=== PATIENT | female | born 1945 | race Caucasian/White ===

== ENCOUNTER 2023-02-08 08:15 | Day surgery (SDC) | payer OTHER ==
[~2023-02-08] VITALS: Ht 167.6 cm; Wt 78.0 kg
[2023-02-08] MEDS ORDERED: fentaNYL CITRATE/PF 100 MCG/2 ML AMP ONE ×2 (10:02→10:45)
[2023-02-08] MEDS ORDERED: MIDAZOLAM HCL 2 MG/2 ML VIAL (VERSED) ONE ×2 (10:03→10:45)
[2023-02-08] MEDS ORDERED: CEFAZOLIN SOD 2 GM in D5W 50 ML IV ONE (10:15)
[2023-02-08 10:40] VITALS: O2SAT 99
[2023-02-08] MEDS ORDERED: NS 100 ML BAG ONE (10:45)
[2023-02-08] MEDS ORDERED: BUPIVACAINE /PF 0.5% 30 ML VIAL ONE (10:45)
[2023-02-08] MEDS ORDERED: ONDANSETRON HCL 4 MG/2 ML VIAL ONE (10:45)
[2023-02-08] MEDS ORDERED: LIDOCAINE 1% 10 MG/ML, 20 ML MDV ONE (10:45)
[2023-02-08] MEDS ORDERED: NS IRRIG SOLN 1000 ML IR ONE (10:45)
[2023-02-08] MEDS ORDERED: SEVOFLURANE 15 MIN GAS INH ONE (10:45)
[2023-02-08] MEDS ORDERED: KETOROLAC TROMETHAMINE 30 MG VIAL ONE (10:45)
[2023-02-08] MEDS ORDERED: LR 1,000 ML IV.SOLN IV ONE (10:45)
[2023-02-08] MEDS ORDERED: EPINEPHRINE HCL/PF 1 MG/ML AMP ONE (10:45)
[2023-02-08] MEDS ORDERED: PROPOFOL 200MG/ 20ML VIAL (DIPRIVAN) IV ONE (10:45)
[2023-02-08] MEDS ORDERED: SUCCINYLCHOLINE CHLORIDE 20 MG/ML(QUELICIN) ONE (10:45)
[2023-02-08] MEDS ORDERED: fentaNYL CITRATE/PF 100 MCG/2 ML AMP IVP PRN (11:45)
[2023-02-08] MEDS ORDERED: HYDROmorphone 1 MG/ML INJ. CARTRIDGE IVP PRN ×2 (11:45)
[2023-02-08] MEDS ORDERED: ONDANSETRON HCL 4 MG/2 ML VIAL IVP PRN (11:45)
[2023-02-08] MEDS ORDERED: LABETALOL 100 MG/ 20ML VIAL IVP PRN (11:45)
[2023-02-08] MEDS ORDERED: LR 1,000 ML IV ONE (11:45)
[2023-02-08] MEDS ORDERED: LABETALOL HCL 20 MG/4 ML CARTRIDGE IVP ONE ×2 (13:50→16:51)
[2023-02-08 18:42] VITALS: BP_SYST 151; PULSE 88; RESP 16
== END 2023-02-08 18:14 ==
LOC: SMU 08:15 → SDS 08:15
PROVIDERS: ATTEND Student in an Organized Health Care Education/Training Program
DX: S82.851A Displaced trimalleolar fracture of right lower leg, initial encounter for closed fracture (principal); I10 Essential (primary) hypertension; F32.A Depression, unspecified; E03.9 Hypothyroidism, unspecified; W19.XXXA Unspecified fall, initial encounter; Y93.89 Activity, other specified; Y92.89 Other specified places as the place of occurrence of the external cause; Y99.8 Other external cause status
CPT/HCPCS: 27822; 76000; 64447; 64445; 87081; 88738; C1713 ×11; J3490; J0690; J0171; J1885; J2001; J3465; J2405; J2704; J0330; J3010; J7060; J7120; A4565; C1769 ×2